=== PATIENT | male | born 2005 | race Caucasian/White ===

== ENCOUNTER 2024-07-14 17:24 | Emergency (ER) | payer OTHER, BC ==
[2024-07-14 17:38] VITALS: BP 126/63; PULSE 92
[2024-07-14] MEDS: Tetracaine HCl/PF 0.5% 4 ML Bottle EYELF ONE (18:12)
== END 2024-07-14 19:06 | disposition home or self-care (01) ==
LOC: JP.ED 17:24
DX: S05.02XA Injury of conjunctiva and corneal abrasion without foreign body, left eye, initial encounter (principal); F17.210 Nicotine dependence, cigarettes, uncomplicated; X58.XXXA Exposure to other specified factors, initial encounter
CPT/HCPCS: 99283

== ENCOUNTER 2024-07-15 10:46 | Emergency (ER) | payer OTHER, BC ==
[2024-07-15 11:15] VITALS: BP 112/67; PULSE 72
[2024-07-15] MEDS: Tetracaine HCl/PF 0.5% 4 ML Bottle EYELF ONE (11:57)
== END 2024-07-15 12:19 | disposition home or self-care (01) ==
LOC: JP.ED 10:46
DX: S05.02XA Injury of conjunctiva and corneal abrasion without foreign body, left eye, initial encounter (principal); X58.XXXA Exposure to other specified factors, initial encounter
CPT/HCPCS: 99283

== ENCOUNTER 2024-11-24 04:27 | Emergency (ER) | payer BC, OTHER ==
[2024-11-24 04:39] VITALS: BP 143/71; PULSE 104
[2024-11-24] MEDS: Ibuprofen 400 MG Tab PO ONE (05:06)
== END 2024-11-24 05:09 | disposition home or self-care (01) ==
LOC: JP.ED 04:27
DX: J02.9 Acute pharyngitis, unspecified (principal); H66.91 Otitis media, unspecified, right ear; F17.200 Nicotine dependence, unspecified, uncomplicated
CPT/HCPCS: 99282; A9270

== ENCOUNTER 2025-07-15 01:22 | Emergency (ER) | payer SELFPAY ==
[2025-07-15 02:19] VITALS: BP 125/80; PULSE 97
== END 2025-07-15 02:41 | disposition home or self-care (01) ==
LOC: JP.ED 01:22
DX: H66.92 Otitis media, unspecified, left ear (principal); H61.92 Disorder of left external ear, unspecified; Z72.0 Tobacco use
CPT/HCPCS: 99282; 99283